=== PATIENT | female | born 1970 | race Caucasian/White ===

== ENCOUNTER 2021-03-19 19:54 | Emergency (ER) | payer OTHER, SELFPAY ==
--- NOTE | ~2021-03-19 | XR_ITS ---
EXAMINATION: XR elbow RT min 3V DATE: 03/19/2021 20:34 INDICATION: Right elbow injury and pain. TECHNIQUE: 5 views of right elbow were obtained. COMPARISON: None. FINDINGS: Bone alignment is normal. No fracture. Joint spaces are well maintained. There is no elbow joint effusion. IMPRESSION: 1. No fracture. Reviewed, dictated and finalized at location A. IMPRESSION: 1. No fracture.
[2021-03-19 20:00] VITALS: BP 122/70; PULSE 81; RESP 20; TEMP 36.9; O2SAT 100
--- NOTE | 2021-03-19 20:06 | ED.UPPEXIN ---
HPI - Extremity Injury (Upper) General Chief Complaint: Extremity Injury, Upper Stated Complaint: R arm injury Time Seen by Provider: 03/19/21 20:14 Source: patient Mode of arrival: ambulatory Limitations: no limitations History of Present Illness HPI narrative: 51-year-old woman comes in today complaining right elbow pain and left shoulder pain that started earlier today when she tripped and fell forward, landing on her arm. Patient states that she did not have any pressing weakness, shortness of breath, and she did not pass out. He states that pain is worse with movement. She denies any pain in her wrist, shoulder and she has no numbness or tingling. complaint: injury to: right and elbow Onset (ago): hour(s) (4) Other Extremity Injury: Right: elbow Other injuries: RLE (Left shoulder pain) Place: outdoors Severity: moderate Relieving factors: rest Exacerbating factors: movement of extremity Context: fall Associated symptoms: denies other symptoms Related Data Home Medications Medication Instructions Recorded Confirmed amitriptyline 50 mg PO DAILY 03/19/21 03/19/21 baclofen 20 mg PO DAILY 03/19/21 03/19/21 fluticasone propionate 2 spray INTRANASAL BID 03/19/21 03/19/21 gabapentin 300 mg PO TID 03/19/21 03/19/21 meloxicam 15 mg PO HS 03/19/21 03/19/21 Allergies Allergy/AdvReac Type Severity Reaction Status Date / Time ciprofloxacin Allergy Unknown Itching Unverified 03/19/21 20:39 Review of Systems Review of Systems: All systems reviewed & are unremarkable except as noted in HPI and below Constitutional: Constitutional: Denies chills and Denies fever(s) ENT: Denies nasal congestion and Denies sore throat Cardiovascular: Cardiovascular: Denies chest pain and Denies radiating jaw, neck or arm pain Respiratory: Respiratory: Denies cough and Denies dyspnea Integumentary/Breasts: Skin/Breast: Denies pruritus, Denies erythema and Denies rash Neurologic: Denies vertigo, Denies dizziness, Denies syncope, Denies focal weakness and Denies numbness Hematologic/Lymphatic: Hematologic/Lymphatic: Denies easy bleeding and Denies easy bruising Allergic/Immunologic: Allergic/Immunologic: Denies lip swelling and Denies throat swelling PMFSH Past Medical History Medical History Low back pain Surgical History Surgical History H/O cervical spine surgery Social History Social History Smoking status: Current every day smoker Alcohol intake: never Substance use: never Living arrangements: with family Exam Const: General: healthy appearing Orientation/consciousness: patient oriented x3 Limitations: no limitations Other: Moderate acute distress. Resp: Effort & Inspection: normal respiratory effort and not labored Auscultation: clear to auscultation bilaterally, no rales, no rhonchi and no wheezes Cardio: Rate: regular rate Rhythm: regular rhythm Heart sounds: no murmurs Skin: General skin exam: normal color, no jaundice and no pallor Rashes: no rashes Other: Superficial abrasion right elbow Neuro: General: patient oriented x3, moves all extremities, no focal motor deficits and CN's II-XI intact bilaterally Speech: normal speech Gait exam (Neuro): Normal gait present Extrem: General: normal to inspection and no clubbing, cyanosis or edema Other: Tenderness over the right elbow olecranon with decreased extension. There is also tenderness over the left trapezius and rhomboid muscles without midline cervical spine tenderness or tenderness of the bony aspects of the shoulder. Left shoulder has normal range of motion. Psych: Appearance: grossly normal and well kempt Mental Status: mental status grossly normal Affect: normal affect Thought content: Yes Normal thought content present MDM - Extremity Injury (Upper) Imaging Data Radiolog
[2021-03-19] MEDS: HYDROcodone/acetaminophen (*CRX) 5-325 MG TABLET 1 TAB PO (20:29)
[2021-03-19 20:56] VITALS: BP 124/87; PULSE 80; RESP 20; TEMP 36.9; O2SAT 100
== END 2021-03-19 21:15 | disposition home or self-care (01) ==
PROVIDERS: Emergency Provider Emergency Medicine; PCP Family Medicine
DX: S46.912A Strain of unspecified muscle, fascia and tendon at shoulder and upper arm level, left arm, initial encounter (principal); S50.01XA Contusion of right elbow, initial encounter; W01.0XXA Fall on same level from slipping, tripping and stumbling without subsequent striking against object, initial encounter
CPT/HCPCS: 73080; 99283; A4565; A9270

== ENCOUNTER 2021-04-23 06:05 | Emergency (ER) | payer OTHER, SELFPAY ==
--- NOTE | ~2021-04-23 | CT_ITS ---
EXAMINATION: CT lumbar spine wo [facility] EXAM DATE: 04/23/2021 07:31 INDICATION: Fall, back pain after injury. Initial encounter. TECHNIQUE: Spiral CT lumbar spine was performed without contrast. Axial, coronal and sagittal images of the lumbar spine were reviewed. The dose-length product (DLP) for this examination was 1048.76 mGy -cm. The exposure was tailored according to patient size (auto mA exposure control), and iterative r econstruction (ASIR) was used as additional dose reduction technique. There is no prior study for co mparison. FINDINGS: There is chronic appearing L2 burst fracture, mild loss of the cortex posteriorly with 4 mm retropuls ion at the superior endplate, moderate to severe loss of its height centrally. There is T12 mild to m oderate compression fracture, with suspicion of an acute fracture line identified at the superior end plate on the right side, findings indicated on axial image 16, sagittal image 64. The other vertebral body heights are relatively well-maintained. There is overall moderate thoracolumbar disc disease. T he vertebral bodies are aligned in the AP dimension. Moderate to severe facet arthropathy at T11-12, mild to moderate disc bulge and central canal stenosi s. At L1-2 there is mild to moderate central canal from retropulsed superior endplate of L2 and mild to moderate disc disease. L3-4 has moderate size disc bulge, moderate facet arthropathy causing mild to moderate central canal stenosis. There is moderate multilevel mid lumbar neural foraminal stenosis. N o spondylolysis. Severe facet arthropathy at L5-S1 on the left and moderate to severe on the right. I gianfranco portion of sacrum without fracture. IMPRESSION: 1. T12 mild to moderate compression fracture, could have acute component. 2. Chronic appearing L2 burst fracture. 3. Moderate lumbar disc disease, advanced facet arthropathy. Reviewed, dictated and finalized at location D. WAREHOUSING SPECIALIST
--- NOTE | ~2021-04-23 | XR_ITS ---
EXAMINATION: XR wrist LT min 3V DATE: 04/23/2021 07:49 INDICATION: Left wrist pain. Fall. TECHNIQUE: 4 views of left wrist were obtained. COMPARISON: None. FINDINGS: Bone alignment is normal. There is a bone fragment dorsal to the carpus on the lateral view . There is mild osteoarthritis of triscaphe joint and first carpometacarpal joint. IMPRESSION: 1. Bone fragment dorsal to the carpus on the lateral view that may be a loose body or age-indetermina te avulsion fracture of dorsal pole of triquetrum. 2. Mild polyarticular osteoarthritis. Reviewed, dictated and finalized at location A. MAKER IMPRESSION: 1. Bone fragment dorsal to the carpus on the lateral view that may be a loose b rita or age-indeterminate avulsion fracture of dorsal pole of triquetrum. 2. Mild polyarticular osteoarthritis.
--- NOTE | ~2021-04-23 | XR_ITS ---
XR wrist RT min 3V DATE: 04/23/2021 07:32 INDICATION: Fall. Right wrist injury, pain TECHNIQUE: 4 views COMPARISON: None FINDINGS: There is mild osteoarthritis at the first carpometacarpal joint. No fracture or dislocation, periosteal reaction or bone destruction. No erosive change or chondrocalc inosis. IMPRESSION: Osteoarthritis at first carpometacarpal joint Reviewed, dictated and finalized at location A. LITIES CLERK
--- NOTE | ~2021-04-23 | CT_ITS ---
EXAMINATION: CT cervical spine wo con DATE: 04/23/2021 07:31 INDICATION: Patient fell this morning. Neck and low back pain. History of neck surgery. TECHNIQUE: Computed tomography (CT) of the cervical spine was performed without intravenous contrast. Automated exposure control and iterative reconstruction technique were employed. Exam dose: 497.72 mGy-cm total exam DLP. COMPARISON: None FINDINGS: Status post anterior cervical spine fusion from C5-T1. Status post posterior spine surgical fusion from C5-T2 There is severe degenerative disc disease and approximately 2 mm retrolisthesis at C3-4. Mild degenerative disc disease at C2-3 and C4-5. Posterior disc bulging at C3-4 and C4-5. No recent fracture or dislocation, locked facet or prevertebral soft tissue swelling is detected. IMPRESSION: Status post posterior and anterior cervical spine fusion Multilevel degenerative disc disease, particularly at C3-4, with associated 2 mm retrolisthesis at th is level Posterior disc bulging at C3-4 and C4-5 No recent fracture her dislocation is evident Reviewed, dictated and finalized at Location A. Reviewed, dictated and finalized at location A. E CARVER SPINDLE IMPRESSION: Status post posterior and anterior cervical spine fusion Multilevel degenerative disc disease, particularly at C3-4, with associated 2 m m retrolisthesis at this level Posterior disc bulging at C3-4 and C4-5 No recent fracture her dislocation is evident
--- NOTE | 2021-04-23 06:33 | PC.NURSE ---
pt states, i smoked marijuana about two hours. pt appears to have flight of ideas at this time. this staff member had to continue to redirect pt back to the topic that was being discussed while the initiall pt assessment was being performed.
--- NOTE | 2021-04-23 06:38 | PC.NURSE ---
pt states, i cant stay at my house because i don't have water and they locked me out. i stay with my son. i have been out walking tonight. pt denies being homeless.
[2021-04-23 06:40] VITALS: BP 138/84; PULSE 79; RESP 16; TEMP 37.1; O2SAT 98
--- NOTE | 2021-04-23 06:54 | ED.GENADULT ---
HPI - General Adult General Chief complaint: Unspecified <Jules Wiley MD - Last Filed: 04/23/21 07:03> Stated complaint: hand,knee,elbow pain <Jules Wiley MD - Last Filed: 04/23/21 07:03> Time Seen by Provider: 04/23/21 07:33 <Jules Wiley MD - Last Filed: 04/23/21 07:03> Source: patient <Jules Wiley MD - Last Filed: 04/23/21 07:03> Mode of arrival: ambulatory <Jules Wiley MD - Last Filed: 04/23/21 07:03> Limitations: no limitations <Jules Wiley MD - Last Filed: 04/23/21 07:03> History of Present Illness HPI narrative: this is a 51-year-old female with some multiple medical issues with chronic neck and back pain with some 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 currently has some right wrist pain, is complaining of neck pain and lower back pain. Currently there is no fever chills no chest pain no shortness of breath no head injury no loss of consciousness no blurry vision no nausea vomiting. Patient has abrasion on her right palm, has some good range of motion in her knees hips elbows and wrists but complaining more of right wrist discomfort. <Jules Wiley MD - Last Filed: 04/23/21 07:03> Onset (ago): hour(s) <Jules Wiley MD - Last Filed: 04/23/21 07:03> Location: neck, back and upper extremity <Jules Wiley MD - Last Filed: 04/23/21 07:03> Radiation: back and neck <Jules Wiley MD - Last Filed: 04/23/21 07:03> Severity: moderate <Jules Wiley MD - Last Filed: 04/23/21 07:03> Severity scale (1-10): 6 <Jules Wiley MD - Last Filed: 04/23/21 07:03> Quality: aching <Jules Wiley MD - Last Filed: 04/23/21 07:03> Pain Consistency: constant <Jules Wiley MD - Last Filed: 04/23/21 07:03> Relieving factors: none <Jules Wiley MD - Last Filed: 04/23/21 07:03> Exacerbating factors: none <Jules Wiley MD - Last Filed: 04/23/21 07:03> Related Data Home medications: Home Medications Medication Instructions Recorded Confirmed amitriptyline 50 mg PO DAILY 03/19/21 04/23/21 baclofen 20 mg PO DAILY 03/19/21 04/23/21 fluticasone propionate 2 spray INTRANASAL BID 03/19/21 04/23/21 gabapentin 300 mg PO TID 03/19/21 04/23/21 meloxicam 15 mg PO HS 03/19/21 04/23/21 atorvastatin 10 mg PO DAILY 04/23/21 04/23/21 <Jules Wiley MD - Last Filed: 04/23/21 07:03> Allergies/adverse reactions: Allergies Allergy/AdvReac Type Severity Reaction Status Date / Time ciprofloxacin Allergy Unknown Itching Unverified 04/23/21 07:15 <Jules Wiley MD - Last Filed: 04/23/21 07:03> Review of Systems Review of Systems: All systems reviewed & are unremarkable except as noted in HPI and below <Jules Wiley MD - Last Filed: 04/23/21 07:03> PMFSH Past Medical History Medical History: Medical History Low back pain <Jules Wiley MD - Last Filed: 04/23/21 07:03> Surgical History Surgical History: Surgical History H/O cervical spine surgery <Jules Wiley MD - Last Filed: 04/23/21 07:03> Social History Social History: Social History Smoking status: Current every day smoker Alcohol intake: never Substance use: never <Jules Wilye MD - Last Filed: 04/23/21 07:03> Exam Const: General: cooperative and well developed <Jules Wiley MD - Last Filed: 04/23/21 07:03> Nutritional Appearance: average body habitus <Jules Wiley MD - Last Filed: 04/23/21 07:03> HENMT: Head: normal to inspection and No palpable skull fracture present <Jules Wiley MD - Last Filed: 04/23/21 07:03> General nose exam: Normal external nose p
[2021-04-23] MEDS: KETOROLAC (*BKC) 60 MG/2 ML VIAL IM (07:03)
[2021-04-23 07:05] LABS: Add Urine Microscopic? YES; Appearance Urine Clear (Clear); Bilirubin Urine Negative (Negative); Blood Urine Negative (Negative); Color Urine Light Yellow (Yellow); Glucose Urine UA Negative (Negative); Ketones Urine Negative (Negative); Leukocyte Esterase Ur Trace (Negative); Nitrate Urine Negative (Negative); Protein Urine Negative (Negative); Specific Grav Ur >= 1.030 (1.010-1.020); Urobilinogen Urine 0.2 mg/dL (0.2-1.0); pH Urine 5.5 (5.0-8.0)
[2021-04-23 07:12] LABS: RBC Urine None seen /hpf (0-2)
[2021-04-23 07:12] LABS: Basophils Absolute Auto 0.03 K/mm3 (0.00-0.10); Basophils Percent Auto 0.4 % (0.0-1.0); Eosinophils Absolute Auto 0.16 K/mm3 (0.02-0.50); Eosinophils Percent Auto 2.4 % (1.0-6.0); Hemoglobin 12.7 g/dL (12.0-15.0); Immature Granulocyte Absolute 0.02 K/mm3 (0.00-0.00); Immature Granulocyte Percent A 0.3 % (0.0-0.0); Lymphocytes Absolute Auto 1.84 K/mm3 (1.10-4.50); Lymphocytes Percent Auto 27.1 % (18.0-42.0); Mean Corpuscular HGB Conc 32.6 g/dL (32.0-36.0); Mean Corpuscular Hemoglobin 29.5 pg (27.0-31.0); Mean Corpuscular Volume 90.5 fL (78.0-102.0); Mean Platelet Volume 10.2 fl (9.2-11.8); Monocytes Absolute Auto 0.59 K/mm3 (0.10-0.90); Monocytes Percent Auto 8.7 % (2.0-11.0); Neutrophils Absolute Auto 4.1 K/mm3 (1.7-7.2); Neutrophils Percent Auto 61.1 % (50.0-70.0); Platelet Count Result 227 K/mm3 (150-420); Red Blood Count 4.31 M/mm3 (4.20-5.40); Red Cell Distribution Width 12.1 % (11.6-14.4); White Blood Count 6.8 K/mm3 (4.8-10.8)
[2021-04-23 07:13] LABS: Bacteria Urine 1+ /hpf; Squamous Epithelial Cell Urine Few /hpf (Few)
[2021-04-23 07:15] LABS: Amphetamine Screen Urine Positive (Negative); Barbiturate Screen Urine Negative (Negative); Benzodiazepines Screen Urine Negative (Negative); Cannabinoid Screen Urine Positive (Negative); Cocaine Screen Urine Negative (Negative); Methadone Screen Urine Negative (Negative); Opiate Screen Urine Negative (Negative); Phencyclidine Screen Urine Negative (Negative)
[2021-04-23 07:27] LABS: Alanine Aminotransferase 39 U/L (14-59); Albumin Level 3.7 g/dL (3.4-5.0); Alkaline Phosphatase 82 U/L (46-116); Anion Gap 7 mmol/L (8-16); Aspartate Amino Transferase 16 U/L (15-37); Bilirubin,Total 0.3 mg/dL (0.00-1.00); Blood Urea Nitrogen 19 mg/dL (7-18); Calcium 9.1 mg/dL (8.5-10.1); Carbon Dioxide 28 mmol/L (21-32); Chloride 104 mmol/L (98-108); Creatine Kinase 184 U/L (26-192); Estimated CRCL calculation 101 ml/min; Estimated Glomerular Filt Rate > 60; Glucose 103 mg/dL (70-99); Osmolality Calculated 290 mOsm/kg (285-295); Potassium 3.7 mmol/L (3.5-5.1); Sodium 139 mmol/L (136-145); Total Protein 6.6 g/dL (6.4-8.2)
[2021-04-23 09:49] VITALS: BP 116/72; PULSE 76; RESP 20; TEMP 36.9; O2SAT 98
== END 2021-04-23 09:54 | disposition home or self-care (01) ==
PROVIDERS: Emergency Medicine; Emergency Provider Internal Medicine Critical Care Medicine; PCP Family Medicine
DX: S62.102A Fracture of unspecified carpal bone, left wrist, initial encounter for closed fracture (principal); N30.00 Acute cystitis without hematuria; S22.080A Wedge compression fracture of T11-T12 vertebra, initial encounter for closed fracture; M54.50 Low back pain, unspecified; W19.XXXA Unspecified fall, initial encounter
CPT/HCPCS: 36415; 72125; 72131; 73110; 80053; 80307; 81001; 82550; 85025; 96372; 99283; 99284; J1885

== ENCOUNTER 2022-01-20 14:25 | Outpatient (RCR) | payer OTHER, SELFPAY ==
--- NOTE | 2022-01-20 14:48 | PTOPEVAL ---
Thank you for referring Lida Diaz to [facility].? The patient is scheduled to be seen for therapy? __2__x/week for 8 visits. Please review, sign, date and return this plan of care ALFREDO. I agree with and certify that the following plan of care is medically necessary. Referring Physician Date Admitting Provider: Attending Provider: Yaakov Munguia, MD Referring Provider: *PT Outpatient Evaluation Start: 01/20/22 14:30 Freq: Status: Active Protocol: Document 01/20/22 14:30 GT (Rec: 01/20/22 14:47 GT [id number]) Therapy Assessment Status Assessment Status Assessment Status Evaluation Outpatient Past Medical History Cardiovascular History Hx Hypercholesterolemia Yes Gastrointestinal History Hx Appendectomy Yes Musculoskeletal History Hx Spinal Surgery Yes: neck x5 Endocrine History Hx Diabetes Yes Reproductive History Hx Post Menopausal Yes Psychosocial History Hx Anxiety Yes Hx Depression Yes Pain History Has Past Pain Affected Your Daily Life Yes Evaluation Information Problem Diagnosis bicipital tenosynovitis Onset 01/14/22 Subjective Information Pt. reports that she has had Query Text:As Reported By Patient/ years of shoulder pain. Pt. Family did undergo MRI recently. She describes shoulder pain at the anterior right shoulder. she is right hand dominant. She notices weakness with reaching overhead or pushing objects. She reports that she does wake frequently at night due to pain. She reports that her goal is to improve her right arm moblity and strength. Diagnostic Tests MRI For This Problem Yes: done in [place] Prior Level of Function Activity Level (Last 3 Months) Occupation unemployed Hand Dominance Right Activity of Daily Living Ability Independent Indoor/Home Mobility Independent Community Mobility Independent Stairs Ability Independent Functional Cognition (Planning, Shopping Independent , Taking Medications) Cooking Yes Cleaning Yes Laundry Yes Shopping Yes Driving Yes Comments Additional Prior Level of Function Pt. reports that she has hx of Comments shoulder, neck, and back p
--- NOTE | 2022-03-24 12:52 | PCPTNOTE ---
Mrs. Diaz attended a total of 3 treatment sessions. She has failed to return to the clinic and will be discharged from our care. Refer to last daily note for pt. discharge status.
== END 2022-02-04 15:06 | disposition home or self-care (01) ==
LOC: CHSPT 14:25
PROVIDERS: Visit Provider Orthopaedic Surgery
DX: M75.21 Bicipital tendinitis, right shoulder (principal)
CPT/HCPCS: 97014; 97110; 97161; G0283

== ENCOUNTER 2023-07-11 20:43 | Emergency (ER) | payer OTHER, SELFPAY ==
--- NOTE | ~2023-07-11 | XR_ITS ---
EXAMINATION: XR ankle RT min 3V INDICATION: Right ankle pain TECHNIQUE: Four views of the right ankle are obtained. COMPARISON: None available FINDINGS: Bone alignment is normal. There is no fracture. The soft tissues are unremarkable. A planta r calcaneal enthesophyte is noted. IMPRESSION: 1. No acute osseous abnormality. Reviewed, dictated and finalized at location F. CHANGER AIRCRAFT
[2023-07-11 20:54] VITALS: BP 129/66; PULSE 99; RESP 16; TEMP 36.6; O2SAT 99
[2023-07-11 22:33] VITALS: O2SAT 100
[2023-07-11 22:45] VITALS: O2SAT 100
[2023-07-11 23:01] VITALS: BP 113/62
--- NOTE | 2023-07-11 23:05 | PC.NURSE ---
Report received from COOPER Simpson. Assumed care of patient at this time.
[2023-07-11] MEDS: SODIUM CHLORIDE 0.9% IV 1,000 ML 999 ML IV CONT (23:12)
[2023-07-11] MEDS: ONDANSETRON INJ 4 MG/2 ML VIAL IV PUSH (23:12)
[2023-07-11 23:21] LABS: Basophils Percent Auto 0.3 % (0.2-1.2); Eosinophils Percent Auto 0.7 % (0-4.4); Hematocrit 37.7 % (37.0-47.0); Hemoglobin 11.9 g/dL (12.0-15.0); Immature Granulocyte Absolute 0.02 K/mm3 (0.00-0.031); Immature Granulocyte Percent A 0.3 % (0-0.5); Lymphocytes Absolute Auto 0.93 K/mm3 (0.9-3.2); Lymphocytes Percent Auto 15.6 % (18.3-44.2); Mean Corpuscular HGB Conc 31.6 g/dl (32-36); Mean Corpuscular Hemoglobin 29.2 pg (26-34); Mean Corpuscular Volume 92.4 fl (80-100); Mean Platelet Volume 10.6 fl (7.4-10.4); Monocytes Absolute Auto 0.4 K/mm3 (0.1-0.6); Monocytes Percent Auto 7.4 % (2.6-8.5); Neutrophils Absolute Auto 4.5 K/mm3 (1.3-6.7); Neutrophils Percent Auto 75.7 % (45.5-73.1); Platelet Count Result 183 k/mm3 (150-375); Red Blood Count 4.08 M/mm3 (4.2-5.4); Red Cell Distribution Width 12.4 % (11.5-14.5)
[2023-07-11 23:24] LABS: Appearance Urine Cloudy (Clear); Bacteria Urine Rare /hpf; Bilirubin Urine Negative (Negative); Blood Urine Negative (Negative); Color Urine Yellow (Yellow); Glucose Urine UA Negative (Negative); Ketones Urine Negative (Negative); Leukocyte Esterase Ur 1+ LEU/UL (Negative); Nitrate Urine Negative (Negative); Non Pathogenic Casts 0-2; Protein Urine Negative (Negative); RBC Urine 0-2 /hpf (0-2); Specific Grav Ur 1.017 (1.001-1.035); Squamous Epithelial Cell Urine Few /hpf (Few); pH Urine 5.5 (5.0-9.0)
[2023-07-11 23:40] LABS: Alanine Aminotransferase 31 U/L (6-35); Albumin Level 3.5 g/dL (3.5-5.1); Alkaline Phosphatase 66 U/L (38-126); Anion Gap 3 mmol/L (8-16); Aspartate Amino Transferase 26 U/L (14-36); Bilirubin,Total 0.3 mg/dL (0.2-1.3); Blood Urea Nitrogen 22 mg/dL (7-17); Calcium 9.3 mg/dL (8.4-10.2); Carbon Dioxide 31 mmol/L (22-30); Chloride 105 mmol/L (98-107); Estimated CRCL calculation 142 ml/min; Estimated Glomerular Filt Rate > 60; Glucose 153 mg/dL (65-110); Lipase 44 U/L (23-300); Potassium 3.8 mmol/L (3.4-5.0); Sodium 139 mmol/L (137-145)
[2023-07-11 23:41] LABS: Lactic Acid Reflex 1.3 mmol/L (0.7-2.0)
[2023-07-11 23:51] LABS: Add Urine Microscopic? YES
[2023-07-11 23:57] LABS: Influenza A QL RT-PCR Negative (Negative); Influenza B QL RT-PCR Negative (Negative); RSV RNA, RT-PCR Negative (Negative); SARS-CoV-2 RNA PCR Negative (Negative)
[2023-07-12] MEDS: ONDANSETRON INJ 4 MG/2 ML VIAL IV PUSH (01:27)
--- NOTE | 2023-07-12 01:30 | ED.GENADULT ---
HPI - General Adult General Chief complaint: Nausea/Vomiting/Diarrhea Stated complaint: fall, ankle pain, nausea Time Seen by Provider: 07/11/23 22:43 History of Present Illness HPI narrative: patient 53-year-old female presents emergency department with chief complaint of nausea vomiting the patient also reports she has pain in her right ankle after she tripped and fell. The patient reports that she has had multiple bouts of nausea vomiting reports that she has had difficulty keeping p.o. down Related Data Home Medications Medication Instructions Recorded Confirmed amitriptyline 50 mg tablet 50 mg PO DAILY 03/19/21 04/23/21 baclofen 20 mg tablet 20 mg PO DAILY 03/19/21 04/23/21 fluticasone propionate 50 2 spray intranasal BID 03/19/21 04/23/21 mcg/actuation nasal spray,suspension gabapentin 300 mg capsule 300 mg PO TID 03/19/21 04/23/21 meloxicam 15 mg tablet 15 mg PO HS 03/19/21 04/23/21 atorvastatin 10 mg tablet 10 mg PO DAILY 04/23/21 04/23/21 Allergies Allergy/AdvReac Type Severity Reaction Status Date / Time ciprofloxacin Allergy Unknown Itching Unverified 07/11/23 23:07 Review of Systems Review of Systems: A 10 system review of systems was completed on the patient and is negative except for what is stated in the HPI. Nursing and ancillary documentation was reviewed. PMFSH Past Medical History Medical History Low back pain Surgical History Surgical History H/O cervical spine surgery Social History Social History Smoking status: Current every day smoker Alcohol intake: never Substance use: never Living arrangements: with family Exam Narrative: GENERAL: Well-appearing, well-nourished, and in no acute distress. HEAD: Normocephalic, atraumatic. EYES: PERRLA and EOMI. ENT: Nares clear, no rhinorrhea or epistaxis. Mucous membranes moist. NECK: Supple. CHEST: Clear to auscultation. No respiratory distress. HEART: Regular rate and rhythm. No murmur heard. Normal peripheral pulses. ABDOMEN: Soft, nontender, nondistended, normal active bowel sounds. EXTREMITIES: Normal range of motion. No edema. tenderness to palpation right ankle SKIN: Warm, dry, no rash. NEURO: No focal deficits. Alert and oriented x3. PSYCH: Normal mood and affect. Course Vital Signs Vital signs: Vital Signs Temperature 36.6 C 07/11/23 20:54 Pulse Rate 99 07/11/23 20:54 Respiratory Rate 16 07/11/23 20:54 Blood Pressure 129/66 07/11/23 20:54 Pulse Oximetry 99 07/11/23 20:54 Oxygen Delivery Room Air 07/11/23 20:54 Temperature 36.6 C 07/11/23 20:54 Pulse Rate 99 07/11/23 20:54 Respiratory Rate 16 07/11/23 20:54 Blood Pressure 113/62 07/11/23 23:01 Pulse Oximetry 100 07/11/23 22:45 Oxygen Delivery Room Air 07/11/23 20:54 Medical Decision Making Vital Signs Vital Signs: Vital Signs Temperature 36.6 C 07/11/23 20:54 Pulse Rate 99 07/11/23 20:54 Respiratory Rate 16 07/11/23 20:54 Blood Pressure 129/66 07/11/23 20:54 Pulse Oximetry 99 07/11/23 20:54 Oxygen Delivery Room Air 07/11/23 20:54 Temperature 36.6 C 07/11/23 20:54 Pulse Rate 99 07/11/23 20:54 Respiratory Rate 16 07/11/23 20:54 Blood Pressure 113/62 07/11/23 23:01 Pulse Oximetry 100 07/11/23 22:45 Oxygen Delivery Room Air 07/11/23 20:54 Lab Data 07/11/23 23:13 07/11/23 23:13 Labs: Lab Results 07/11/23 Range/Units 23:13 WBC 6.0 (4.5-10.0) K/mm3 RBC 4.08 L (4.2-5.4) M/mm3 Hgb 11.9 L (12.0-15.0) g/dL Hct 37.7 (37.0-47.0) % MCV 92.4 (80-100) fl MCH 29.2 (26-34) pg MCHC 31.6 L (32-36) g/dl RDW 12.4 (11.5-14.5) % Plt Count 183 (150-375) k/mm3 MPV 10.6 H (7.4-10.4) fl Immature Gran % (Auto)
--- NOTE | 2023-07-12 01:37 | PC.NURSE ---
Patient did not allow this RN to repeat VS. Patient eating chips and drinking water for PO challenge.
[2023-07-12 03:27] VITALS: BP 120/99; PULSE 65; RESP 17; TEMP 36.6; O2SAT 100
== END 2023-07-12 03:30 | disposition home or self-care (01) ==
PROVIDERS: Emergency Provider Emergency Medicine
DX: R11.2 Nausea with vomiting, unspecified (principal); S93.401A Sprain of unspecified ligament of right ankle, initial encounter; Z20.822 Contact with and (suspected) exposure to COVID-19; F17.200 Nicotine dependence, unspecified, uncomplicated; W01.0XXA Fall on same level from slipping, tripping and stumbling without subsequent striking against object, initial encounter
CPT/HCPCS: 36415; 73610; 80053; 81001; 83605; 83690; 85025; 87086; 87637; 96361; 96374; 99284; J2405; J7030